=== PATIENT | female | born 1970 | race Caucasian/White ===

== ENCOUNTER → 2016-08-02 | Outpatient (CLI) | payer OTHER | LOC: BRMIMAGING 10:54 | DX: Z12.31 Encounter for screening mammogram for malignant neoplasm of breast (principal) | CPT/HCPCS: G0202 ==

== ENCOUNTER → 2017-08-19 | Outpatient (CLI) | payer OTHER | LOC: BRMIMAGING 11:33 | PROVIDERS: ATTEND Physician Assistant Surgical | DX: Z12.31 Encounter for screening mammogram for malignant neoplasm of breast (principal); Z80.3 Family history of malignant neoplasm of breast ==